=== PATIENT | female | born 1995 | race Caucasian/White ===

== ENCOUNTER → 2018-04-09 | Outpatient (CLI) | payer BC ==
[~2018-04-09] MED LIST: AUGMENTIN 875 M1 TAB PO; NEXPLANON68 MG ID; NO HOME MEDICATIONS
== END ==
LOC: COL.ER 18:07
DX: T76.21XA Adult sexual abuse, suspected, initial encounter (principal)

== ENCOUNTER → 2018-04-09 | Emergency (ER) | payer BC ==
[~2018-04-09] VITALS: Ht 160 cm; Wt 67.7 kg
[2018-04-09 17:47] VITALS: BP 127/56; PULSE 76; TEMP 99.1
== END ==
LOC: COL.ER 17:41
DX: T74.21XA Adult sexual abuse, confirmed, initial encounter (principal)

== ENCOUNTER → 2018-04-09 | Outpatient (REF) | payer OTHER | LOC: LDRO 18:15 | DX: T74.21XA Adult sexual abuse, confirmed, initial encounter (principal) ==

== ENCOUNTER → 2018-04-24 | Outpatient (CLI) | payer BC | LOC: BHSO 14:56 | DX: F31.11 Bipolar disorder, current episode manic without psychotic features, mild (principal) ==